=== PATIENT | female | born 1990 | race Hispanic/Latino ===

== ENCOUNTER 2019-09-13 17:24 | Emergency (ER) | payer BC, OTHER ==
--- OUTSIDE RECORDS SUMMARY | 2019-09-13 17:27 | XMS REPORT ---
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 Problem Mixed hyperlipidemia E78.2 Active Problem Anxiety, generalized F41.1 Active Problem Vitamin D deficiency disease E55.9 Active Problem Adult BMI 38.0-38.9 kg/sq m Z68.38 Active Problem Tobacco use disorder F17.200 Active Problem Current moderate episode of major F32.1 Active depressive disorder without prior episode Assessment Absolute glaucoma, 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 Assessment Adult BMI 38.0-38.9 kg/sq m Z68.38 Active Assessment Nonintractable headache, R51 Active unspecified chronicity pattern, unspecified headache type Assessment Vitamin B12 deficiency E53.8 Active Assessment Mixed hyperlipidemia E78.2 Active Assessment Fatigue, unspecified type R53.83 Active Assessment Tobacco use disorder F17.200 Active Assessment Vitamin D deficiency disease E55.9 Active Medications Medication Code Code Instructions Start End Status Dosage System Date Date Zoloft [facility] 10317321211 100 MG Orally Active 1 tablet Once a day Vitamin D3 [facility] 60255272642 57856 UNIT May 21Aug 19, Active 1 capsule Orally Once a 2019 2020 week x 12 weeks Wellbutrin XL ND 51235904817 150 MG Orally May 21, Active 1 tablet Once a day 2019 in the morning Results No Known Results Summary Purpose eClinicalWorks Submission
--- OUTSIDE RECORDS SUMMARY | 2019-09-13 17:27 | XMS REPORT ---
:1990 Author Organization eClinicalWorks Care Team Providers Name Role Phone Jony Mcdonnellh Provider Role Unavailable Allergies, Adverse Reactions, Alerts Substance Reaction Event Type Hydrocodone-Acetaminophen Info Not Available Drug Allergy Problems Problem Type Condition Code Onset Dates Condition Status Assessment Nonintractable headache, R51 Active unspecified chronicity pattern, unspecified headache type Assessment Anxiety, generalized F41.1 Active Assessment Fatigue, unspecified type R53.83 Active Problem Tobacco use disorder F17.200 Active Problem Current moderate episode of major F32.1 Active depressive disorder without prior episode Problem Mixed hyperlipidemia E78.2 Active Assessment Current moderate episode of major F32.1 Active depressive disorder without prior episode Problem Adult BMI 38.0-38.9 kg/sq m Z68.38 Active Problem Anxiety, generalized F41.1 Active Assessment Absolute glaucoma, 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
--- OUTSIDE RECORDS SUMMARY | 2019-09-13 17:27 | XMS REPORT | Encounter Summary ---
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 Gynecologic examination pap, LB + CT/NG + reflex HR HPV if ASC-U, ASC-H, LSIL, HSIL, JESSE HBsAg (hepatitis B surface Ag), serum HIV (1+2) Ab screen, serum RPR (rapid plasma reagin), serum Discussion Note Pap, GC/CT done. Schedule mammogram. Counseled regarding prevention of STD's and discussed contraceptive options. Advised avoidance of tobacco, alcohol, and drugs . Encouraged good nutrition, regular exercise, and ideal body weight. Patient educational handouts: No information available. Plan of Care Reminders Provider Appointments None recorded. Lab Pap, LB + Medical Diagnostic CT/NG + Reflex hr HPV 02/11/2019 Laboratories ([facility]) If ASC-U, ASC-H, LSIL, HSIL, JESSE HBsAg [facility] (Hepatitis B Surface 02/11/2019 [facility] (Lab) Ag), Serum HIV (1+2) [facility] Ab Screen, Serum 02/11/2019 [facility] (Lab) RPR (Rapid [facility] Plasma Reagin), Serum 02/11/2019 [facility] (Lab) Referral None recorded. Procedures None recorded. Surgeries None recorded. Imaging None recorded. Medications Name Start Date sertraline 100 mg tablet one po daily Medications Administered None recorded. Vitals Height Weight BMI Blood Pressure 5 ft 2 in 157.2 lbs 28.8 kg/m2 116/74 mm[Hg] Lab Results None recorded. Allergies Code Code System Name Reaction Severity Status Onset 5489 RxNorm Hydrocodone Hives Mild to Active Moderate Problems None recorded. Procedures Date Name Performed by 05/10/2015 Repair of Umbilical Hernia Information not available 05/10/2010 Bilateral Augmentation Mammoplasty Information not available Bilateral Tubal Ligation Information not available Vaccine List None recorded. Social History Tobacco Smoking Status Former Smoker Past Encounters 02/11/2019 Gynecologic Examination Ghada Jackson MD: [address] [place] [address], [address], [place] [address], Ph. [phone] History of Present Illness Note: 28 yo presenting for WWE, no complaints. Pt has never had an abnl pap. 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 Mood and Affect: active and alert, normal mood, normal affect Skin: Appearance: no rashes, no lesions Neck: Neck: supple, trachea midline, no masses, FROM. Thyroid: no enlargement, no nodules, non-tender Lungs: Respiratory Effort: no intercostal retractions, no accessory muscle usage. Auscultation: clear to auscultation, no wheezing, no rales/crackles, no rhonchi Cardiovascular: Auscultation: RRR, no murmur. Peripheral Vascular: no LLE edema, no RLE edema, no varicosities, no calf tenderness, no palpable cords, pedal pulses intact Abdomen: Auscultation/Inspection/Palpation: normal bowel sounds, soft, non-distended, no tenderness, no hepatomegaly, no splenomegaly, no masses, no CVA tenderness. Hernia: none palpated Breast: Inspection/Palpation: no skin changes, no abnormal secretions, nipple appearance normal, no tenderness, no distinct masses Female Genitalia: Vulva: no masses, no atrophy, no lesions. Vagina: no tenderness, no erythema, no abnormal vaginal discharge, no vesicle(s) or ulcers, no cystocele, no rectocele. Cervix: grossly normal, no discharge, no cervical motion tenderness. Uterus: normal size, normal shape, midline, no uterine prolapse, mobile, non-tender. Bladder/Urethra: normal meatus, no urethral discharge, no urethral mass, bladder non distended. Adnexa/Parametria: no parametrial tenderness, no parametrial mass, no adnexal tenderness, no ovarian mass
--- OUTSIDE RECORDS SUMMARY | 2019-09-13 17:27 | XMS REPORT ---
:1990 Author Organization eClinicalWorks Care Team Providers Name Role Phone Jony Mcdonnellh Provider Role Unavailable Allergies, Adverse Reactions, Alerts Substance Reaction Event Type Hydrocodone-Acetaminophen Info Not Available Drug Allergy Problems Problem Type Condition Code Onset Dates Condition Status Assessment Adult BMI 30.0-30.9 kg/sq m Z68.30 Active Assessment Current moderate episode of major F32.1 Active depressive disorder without prior episode Problem Vitamin D deficiency disease E55.9 Active Assessment Encounter for dietary counseling Z71.3 Active and surveillance Problem Mixed hyperlipidemia E78.2 Active Problem Adult BMI 30.0-30.9 kg/sq m Z68.30 Active Problem Current moderate episode of major F32.1 Active depressive disorder without prior episode Problem Adult BMI 38.0-38.9 kg/sq m Z68.38 Active Problem Anxiety, generalized F41.1 Active Problem Tobacco use disorder F17.200 Active Assessment Tobacco use disorder F17.200 Active Assessment Nonintractable headache, R51 Active unspecified chronicity pattern, unspecified headache type Assessment Absolute glaucoma, 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 70008994173 875-125 MG Jun 20, Jun 30, Active 1 tablet Clavulanate Orally every 12 2018 2019 hrs Zoloft ND 61181006976 100 MG Orally Inactive 1 tablet Once a day Vitamin D3 [facility] 30223473695 36973 UNIT Active 1 capsule Orally Once a week x 12 weeks Phentermine HCl ND 74527679668 15 MG Orally Jun 20, Jul 20, Active Take 1 Once a day 2018 2020 Capsule QAm x 2 weeks then 2 Caps qAM x 1 week Wellbutrin XL [facility] 41568717968 300 MG Orally Active 1 tablet Once a day in the morning Results No Known Results Summary Purpose eClinicalWorks Submission
--- OUTSIDE RECORDS SUMMARY | 2019-09-13 17:27 | XMS REPORT ---
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 Active psychoactive substance Problem Vitamin D deficiency disease E55.9 Active Problem Mixed hyperlipidemia E78.2 Active Problem Adult BMI 30.0-30.9 kg/sq m Z68.30 Active Problem Current moderate episode of major F32.1 Active depressive disorder without prior episode Problem Adult BMI 38.0-38.9 kg/sq m Z68.38 Active Problem Anxiety, generalized F41.1 Active Problem Tobacco use disorder F17.200 Active Medications Medication Code Code Instructions Start End Status Dosage System Date Date Wellbutrin XL [facility] 83441398543 300 MG Orally Active 1 tablet Once a day in the morning Results No Known Results Summary Purpose eClinicalWorks Submission
--- OUTSIDE RECORDS SUMMARY | 2019-09-13 17:27 | XMS REPORT ---
:1990 Author Organization eClinicalWorks Care Team Providers Name Role Phone Junior Mcdonnell Provider Role Unavailable Allergies, Adverse Reactions, Alerts Substance Reaction Event Type Hydrocodone-Acetaminophen Info Not Available Drug Allergy Problems Problem Type Condition Code Onset Dates Condition Status Assessment Acute non-recurrent maxillary J01.00 Active sinusitis Assessment Upper respiratory tract infection, J06.9 Active unspecified type Assessment Influenza-like symptoms R68.89 Active Problem Vitamin D deficiency disease E55.9 [...] Start End Status Dosage System Date Date Vitamin D3 [facility] 14215810057 61387 UNIT Active 1 capsule Orally Once a week x 12 weeks Oseltamivir [facility] 58843433522 75 MG Orally Jul 02, Active 1 capsule Phosphate Twice a day 2018 Wellbutrin XL ND 29736616510 300 MG Orally Active 1 tablet Once a day in the morning Phentermine HCl ND 69540368524 15 MG Orally Jun 20, Jul 20, Active Take 1 Once a day 2018 2019 Capsule QAm x 2 weeks then 2 Caps qAM x 1 week Azithromycin ND 83293213906 250 MG Orally Jul 02, Jul 07, Active 2 tablets Once a day 2018 2018 on the first day, then 1 tablet daily for 4 days Results Name Result Date Reference Range Unit Abnormality Flag STREP A RAPID ----Result NEG [id number] FLU TEST A/B ----B NEG [id number] ----A NEG [id number] Summary Purpose eClinicalWorks Submission
--- OUTSIDE RECORDS SUMMARY | 2019-09-13 17:27 | XMS REPORT ---
[...] Status Dosage System Date Date Wellbutrin XL [facility] 65053404111 300 MG Orally Active 1 tablet Once a day in the morning Results No Known Results Summary Purpose eClinicalWorks Submission
--- OUTSIDE RECORDS SUMMARY | 2019-09-13 17:27 | XMS REPORT ---
[...] Problem Tobacco use disorder F17.200 Active Assessment Mixed hyperlipidemia E78.2 Active Assessment Tobacco use disorder F17.200 Active Assessment Encounter for dietary counseling Z71.3 Active and surveillance Assessment Absolute glaucoma, 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 Assessment Fatigue, unspecified type R53.83 Active Assessment Vitamin D deficiency disease E55.9 Active Assessment Nonintractable headache, R51 Active unspecified chronicity pattern, unspecified headache type Assessment Anxiety, generalized F41.1 Active Assessment Vitamin B12 deficiency E53.8 Active Assessment Sexual dysfunction due to F19.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 51874449973 100 MG Orally Active 1 tablet Once a day Phentermine HCl ND 45787928302 30 MG Orally Active 1 capsule Once a day Vitamin D3 [facility] 80584730901 41013 UNIT Active 1 capsule Orally Once a week x 12 weeks Wellbutrin XL [facility] 35204683832 300 MG Orally Active 1 tablet Once a day in the morning Results No Known Results Summary Purpose eClinicalWorks Submission
[2019-09-13] MEDS ORDERED: ONDANSETRON 4 MG/2 ML VIAL ONE (18:12)
[2019-09-13] MEDS ORDERED: NA CHLORIDE 0.9% 1,000 ML ONE (18:12)
[2019-09-13] MEDS ORDERED: FAMOTIDINE 20 MG/2 ML VIAL IV ONE (18:12)
[2019-09-13] MEDS ORDERED: MORPHINE 2 MG/ML SYR ONE (18:31)
[2019-09-13 18:41] LABS: Absolute Lymphocytes (CBC) 0.7 K/uL (0.7-4.9); Basophils % 0.3 % (0-1.3); Hematocrit 41.9 % (36.0-45.0); Lymphocytes % 7.3 % (15.3-44.8); MPV 9.2 fL (7.6-11.3); RBC Red Blood Cell Count 4.83 M/uL (3.86-4.86)
[2019-09-13 18:46] LABS: Bilirubin Direct 0.1 mg/dL (0-0.2); Bilirubin Total 0.5 mg/dL (0.2-1.0); Potassium 3.8 mmol/L (3.5-5.1); Protein, Total 7.9 g/dL (6.4-8.2)
[2019-09-13 19:04] LABS: Urine Blood TRACE (NEG); Urine Glucose NEGATIVE (NEG); Urine Protein 1+ (NEG); Urine Specific Gravity 1.025 (1.005-1.030); Urine pH 8.5 (5.0-7.0)
--- NOTE | 2019-09-13 20:25 | ER ---
Nurse's Notes [facility] Name: Renae Joseph Age: 29 yrs Sex: Female : 1990 Arrival Date: 09/13/2019 Time: 17:29 Bed 26 Private MD: Diagnosis: Abdominal and pelvic pain;Nausea and vomiting;Constipation Presentation: 09/12 17:45 Chief complaint: Patient states: "I've been constipated for about a week and my grandma aa5 gave me a colon cleanse and my stomach is hurting and I am throwing up and I did have 2 bowel movement but not as much as I thought". Coronavirus screen: The patient has NOT traveled to a country currently being monitored by the CDC within the last 14 days. Ebola Screen: Patient negative for fever greater than or equal to 101.5 degrees Fahrenheit, and additional compatible Ebola Virus Disease symptoms. Initial Sepsis Screen: Does the patient meet any 2 criteria? No. Patient's initial sepsis screen is negative. Does the patient have a suspected source of infection? No. Patient's initial sepsis screen is negative. Risk Assessment: Do you want to hurt yourself or someone else? Patient reports no desire to harm self or others. 17:45 Method Of Arrival: Ambulatory aa5 17:45 Acuity: ЕКАТЕРИНА 3 aa5 20:35 Onset of symptoms was September 06, 2019 at 20:00. vc Triage Assessment: 20:32 General: Appears in no apparent distress. Behavior is calm, cooperative, appropriate vc for age. Pain: Complains of pain in epigastric area. GI: Reports upper abdominal pain, nausea, vomiting. 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 - Social history:: Smoking status: Patient denies any tobacco usage or history of. Screenin:31 Abuse screen: Denies threats or abuse. Nutritional screening: No deficits noted. vc Tuberculosis screening: No symptoms or risk factors identified. 20:34 Fall Risk None identified. vc Assessment: 17:48 General: Appears in no apparent distress. uncomfortable, Behavior is calm, cooperative. ls4 Pain: Complains of pain in epigastric area Pain currently is 8 out of 10 on a pain scale. Neuro: No deficits noted. Cardiovascular: No deficits noted. Respiratory: No deficits noted. GI: Abdomen is round non-distended, Bowel sounds present X 4 quads. Abd is soft Abdomen is tender to palpation in epigastric area. : No signs and/or symptoms were reported regarding the genitourinary system. Derm: No deficits noted. 19:50 Reassessment: Patient appears in no apparent distress at this time. No changes from ls4 previously documented assessment. Patient and/or family updated on plan of care and expected duration. Pain level reassessed. Patient is alert, oriented x 3, equal unlabored respirations, skin warm/dry/pink. Vital Signs: 17:47 BP 124 / 89; Pulse 112; Resp 18 S; Temp 98.5(TE); Pulse Ox 98% on R/A; Weight 70.31 kg aa5 (R); Height 5 ft. 2 in. (157.48 cm) (R); Pain 7/10; 18:38 BP 123 / 73; Pulse 104; Resp 18; Temp 99.4(O); Pulse Ox 99% on R/A; mh5 17:47 Body Mass Index 28.35 (70.31 kg, 157.48 cm) aa5 ED Course: 17:29 Patient arrived in ED. ag5 17:45 Arm band placed on. aa5 17:46 Triage completed. aa5 17:48 Shiva Tijerina FNP-C [facility]. la1 17:48 Ceferino De La Cruz MD is Attending Physician. la1 17:59 Avril Miles, DIANA is Primary Nurse. ls4 18:39 Patient has correct armband on for positive identification. Placed in gown. Bed in low mh5 position. Call light in reach. Adult w/ patient. Warm blanket given. Pulse ox on. NIBP on. 20:32 Urine --Ancillary (enter results) Sent. ls4 20:32 Urine Dipstick--Ancillary (enter results) Sent. ls4 20:33 No provider procedures requiring assistance completed. IV discontinued, intact, vc bleeding controlled, No redness/swelling at site. Pressure dressing applied. Administered Medications: 18:26 Drug: NS 0.9% 1000 ml Route: IV; Rate: 1 bolus; Site: right antecubital; ls4 19:30 Follow up: IV Status: Completed infusion; IV Intake: 1000ml ls4 18:26 Drug: Zofran (Ondansetron) 4 mg Route: IVP; Site: right antecubital; ls4 18:30 Drug: morphine 2 mg Route: IVP; Site: right antecubital; ls4 18:36 Drug: Pepcid 20 mg Route: IVP; Site: left antecubital; ls4 Intake: 19:30 IV: 1000ml; Total: 1000ml. ls4 Outcome: 20:24 Discharge ordered by MD. la1 20:34 Discharged to home ambulatory, with significant other. vc 20:34 Condition: improved 20:34 Discharge instructions given to patient, significant other, Instructed on discharge instructions, follow up and referral plans. medication usage, Demonstrated understanding of instructions, follow-up care, medications, Prescriptions given X 2. 20:36 Patient left the ED. vc Signatures: Dede Juarez, RN RN aa5 Shiva Tijerina, POMOLOGY TEACHER-C POMOLOGY TEACHER-Cla1 Heather Jacobsen 5 Avril Miles RN RN ls4 Regis Maravilla 5 Marina Juárez RN RN vc Corrections: (The following items were deleted from the chart) 20:47 20:34 GI: Abdomen is flat, vc ls4
--- NOTE | 2019-09-13 20:25 | EDPHYS ---
Physician Documentation [facility] Name: Renae Joseph Age: 29 yrs Sex: Female : 1990 Arrival Date: 09/13/2019 Time: 17:29 Bed 26 Private MD: ED Physician Ceferino De La Cruz HPI: 09/12 18:07 This 29 yrs old Female presents to ER via Ambulatory with complaints of la1 Vomiting, Abdominal Pain. 18:07 The patient presents to the emergency department with nausea, vomiting, abdominal pain, la1 of the epigastric area. Onset: The symptoms/episode began/occurred today. Possible causes: unknown. The symptoms are aggravated by vomiting The symptoms are alleviated by nothing. Associated signs and symptoms: Pertinent positives: constipation, Pertinent negatives: dysuria, fever, GI bleeding, hematuria. Severity of symptoms: At their worst the symptoms were moderate. The patient has not experienced similar symptoms in the past. 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 - Social history:: Smoking status: Patient denies any tobacco usage or history of. ROS: 18:08 Constitutional: Negative for fever, chills, and weight loss, Eyes: Negative for injury, la1 pain, redness, and discharge, ENT: Negative for injury, pain, and discharge, Neck: Negative for injury, pain, and swelling, Cardiovascular: Negative for chest pain, palpitations, and edema, Respiratory: Negative for shortness of breath, cough, wheezing, and pleuritic chest pain. 18:08 Back: Negative for injury and pain, : Negative for injury, bleeding, discharge, and swelling, MS/Extremity: Negative for injury and deformity, Neuro: Negative for headache, weakness, numbness, tingling, and seizure. 18:08 Abdomen/GI: Positive for abdominal pain, nausea, vomiting, constipation. Exam: 18:09 Constitutional: This is a well developed, well nourished patient who is awake, alert, la1 and in no acute distress. Head/Face: Normocephalic, atraumatic. Eyes: Pupils equal round and reactive to light, extra-ocular motions intact. Lids and lashes normal. Conjunctiva and sclera are non-icteric and not injected. Cornea within normal limits. Periorbital areas with no swelling, redness, or edema. ENT: Mucous membranes moist. Neck: Trachea midline, Chest/axilla: Normal chest wall appearance and motion. Nontender with no deformity. No lesions are appreciated. Cardiovascular: Regular rate and rhythm with a normal S1 and S2. Respiratory: Lungs have equal breath sounds bilaterally, clear to auscultation 18:09 Back: No spinal tenderness. No costovertebral tenderness. Full range of motion. 18:09 Abdomen/GI: Inspection: abdomen appears normal, Bowel sounds: normal, in all quadrants, Palpation: soft, in all quadrants, mild abdominal tenderness, in all quadrants, mass, is not appreciated, rebound tenderness, is not appreciated, Indicators: McBurney's point is not tender, Helms's sign is negative, Rovsing's sign is negative, Obturator sign is negative, Psoas sign is negative. Vital Signs: 17:47 BP 124 / 89; Pulse 112; Resp 18 S; Temp 98.5(TE); Pulse Ox 98% on R/A; Weight 70.31 kg aa5 (R); Height 5 ft. 2 in. (157.48 cm) (R); Pain 7/10; 18:38 BP 123 / 73; Pulse 104; Resp 18; Temp 99.4(O); Pulse Ox 99% on R/A; mh5 17:47 Body Mass Index 28.35 (70.31 kg, 157.48 cm) aa5 MDM: 17:48 Patient medically screened. la1 19:32 Data reviewed: vital signs, nurses notes, lab test result(s), and as a result, I will la1 discharge patient. Data interpreted:. 20:23 Special discussion: Based on the patient's Hx, exam, and Dx evaluation, there is no la1 indication for emergent surgery or inpatient Tx. It is understood by the patient/guardian that if the Sx's persist or worsen they need to return immediately for re-evaluation. 20:25 ED course: pt tolerating PO fluids, feeling much better. la09/12 17:57 Order name: Basic Metabolic Panel la09/12 17:57 Order name: CBC with Diff la1 09/12 17:57 Order name: Creatinine for Radiology la1 09/12 17:57 Order name: Hepatic Function la09/12 17:57 Order name: Lipase la1 09/12 18:45 Order name: Creatinine (Radiology Only); Complete Time: 19:12 EDMS 09/12 18:47 Order name: Basic Metabolic Panel; Complete Time: 19:12 EDMS 09/12 18:47 Order name: Liver (Hepatic) Function; Complete Time: 19:12 EDMS 09/12 18:47 Order name: Lipase; Complete Time: 19:12 EDMS 09/12 18:52 Order name: Urine Dipstick--Ancillary (enter results) eb 09/12 18:52 Order name: Urine --Ancillary (enter results) eb 09/12 18:55 Order name: CBC with Automated Diff EDMS 09/12 19:05 Order name: Urine --Ancillary; Complete Time: 19:12 EDMS 09/12 19:05 Order name: Urine Dipstick-Ancillary; Complete Time: 19:12 EDMS 09/12 17:57 Order name: IV Saline Lock; Complete Time: 20:39 la1 09/12 17:57 Order name: Labs collected and sent; Complete Time: 20:39 la1 09/12 17:57 Order name: Urine Dipstick-Ancillary (obtain specimen); Complete Time: 20:36 nc1 09/12 17:57 Order name: Urine Test (obtain specimen); Complete Time: 20:36 nc09/12 19:36 Order name: PO challenge; Complete Time: 20:10 la09/12 20:29 Order name: Manual Differential EDMS Administered Medications: 18:26 Drug: NS 0.9% 1000 ml Route: IV; Rate: 1 bolus; Site: right antecubital; ls4 19:30 Follow up: IV Status: Completed infusion; IV Intake: 1000ml ls4 18:26 Drug: Zofran (Ondansetron) 4 mg Route: IVP; Site: right antecubital; ls4 18:30 Drug: morphine 2 mg Route: IVP; Site: right antecubital; ls4 18:36 Drug: Pepcid 20 mg Route: IVP; Site: left antecubital; ls4 Disposition: 09/13/19 20:24 Discharged to Home. Impression: Abdominal and pelvic pain, Nausea and vomiting, Constipation. - Condition is Stable. - Discharge Instructions: Nausea and Vomiting, Adult, Abdominal Pain, Adult, [id number], Rehydration, Adult. - Prescriptions for Bentyl 20 mg Oral Tablet - take 1 tablet by ORAL route every 6 hours As needed; 20 tablet. Zofran 4 mg Oral Tablet - take 1 tablet by ORAL route every 12 hours As needed; 6 tablet. - Medication Reconciliation Form, Thank You Letter form. - Follow up: Private Physician; When: 2 - 3 days; Reason: Recheck today's complaints, Re-evaluation by your physician. - Problem is new. - Symptoms have improved. Addendum: 09/16/2019 07:25 Co-signature as Attending Physician, Ceferino De La Cruz MD I agree with the assessment and c romo plan of care. Signatures: Dispatcher [employer] EDKY Ceferino De La Cruz MD MD cha Calderon, Audri, RN RN aa5 Shiva Tijerina, TRAINING DIRECTOR-C TRAINING DIRECTOR-Cla1 Avril Miles, RN RN ls4 Marina Juárez RN RN vc Corrections: (The following items were deleted from the chart) 09/12 20:36 20:24 09/13/2019 20:24 Discharged to Home. Impression: Abdominal and pelvic pain; vc Nausea and vomiting; Constipation. Condition is Stable. Forms are Medication Reconciliation Form, Thank You Letter, Antibiotic Education, Prescription Opioid Use. Follow up: Private Physician; When: 2 - 3 days; Reason: Recheck today's complaints, Re-evaluation by your physician. Problem is new. Symptoms have improved. la1
[2019-09-13 20:29] LABS: Blood Morphology Comment NOT SEEN (NOT SEEN); Platelet Estimate ADEQ
[2019-09-13 20:43] VITALS: BP 123/73; TEMP 99.4; O2SAT 99
== END 2019-09-13 20:36 | disposition home or self-care (01) ==
LOC: ER 17:24
DX: R10.9 Unspecified abdominal pain (principal); R10.2 Pelvic and perineal pain; K59.00 Constipation, unspecified; Z88.6 Allergy status to analgesic agent; Z91.09 Other allergy status, other than to drugs and biological substances; F41.8 Other specified anxiety disorders
CPT/HCPCS: 96361; 85025; 80048; 36415; 81025; 80076; 81003; 83690; 96375; 96374; 99284; J2270; J7030; J2405

== ENCOUNTER 2024-10-16 10:18 | Emergency (ER) | payer OTHER, SELFPAY ==
--- OUTSIDE RECORDS SUMMARY | 2024-10-16 10:23 | XMS REPORT | Continuity of Care Document ---
Author Name Unknown Address [address] [facility] [address] [place] [address] [facility] Address [address] [facility] [address] [place] [address] Care Team Providers Care Hyperbaric Technician Name Role Phone Sathya Junior Deven Attending Clinician Unavailable Hernesto Dodge DO Attending Clinician [phone] Chaya Attending Clinician Unavailable Chaya Admitting Clinician Unavailable Payers Payer Name Policy Type Policy Number Effective Date Expirati on Date Source [facility] 6 [id number] 2023 00:00:00 [facility] BELTRAN CRUZ FROM OCCIDENTAL HEALTH PLAN (EPO) [id number] Problems Condition Name Condition Details Condition Category Status Onset Date Resolution Date Last Treatment Date Treating Clinician Comments Source [id number] PCOS (polycysti c ovarian syndrome) Problem [facility] [id number] Memory change Problem [facility] [id number] Irregular menstrual bleeding Problem [facility] [id number] Current moderate episode of major depressive disorder without prior episode Problem [facility] [id number] Body mass index [BMI] 32.0-32.9, adult Problem [facility] [id number] Tobacco use disorder Problem [facility] [id number] Excessive bleeding in premenopau naresh period Problem [facility] [id number] Anxiety, generalize d Problem [facility] Blind hypertensi ve eye Absolute glaucoma, unspecifie d laterality Problem [facility] [id number] Other obesity due to excess calories Problem [facility] [id number] Mixed hyperlipid emia Problem [facility] [id number] Vitamin D deficiency disease Problem [facility] [id number] Panic attack Problem [facility] Allergies, Adverse Reactions, Alerts Allergy Name Allergy Type Status Severity Reaction(s) Onset Date Inactive Date Treating Clinician Comments Source Hydrocod one Propensi ty to adverse reaction s Active Unknown - See comments 11-24 00:00: 00 [facility] Latex Propensi ty to adverse reaction s Active Unknown - See comments 11-24 00:00: 00 [facility] HYDROCOD ONE DRUG INGREDI Active Unknown-Cmnt 11-24 00:00: 00 [facility] LATEX DRUG INGREDI Active Unknown-Cmnt 11-24 00:00: 00 [facility] acetamin ophen / hydrocod one acetamin ophen / hydrocod one Active Unknown [facility] NO KNOWN ALLERGIE S Drug Class Active [facility] Hydrocod one Allergy to substanc e Active Mild to moderate Hives [facility] Social History Social Habit Start Date Stop Date Quantity Comments Source Exposure to SARS-CoV-2 (event) Not sure [facility] History of Tobacco Use Current some day smoker [facility] Sex Assigned At [facility] Smoking Status Start Date Stop Date Source Unknown if ever smoked [facility] Current some day smoker 2024-07-12 00:00:00 [facility] Former Smoker 2023-08-09 00:00:00 2023-08-09 00:00:00 [facility] Current Smoker 2023-07-07 00:00:00 [facility] Medications Ordered Medication Name Filled Medication Name Start Date Stop Date Current Medication? Ordering Clinician Indication Dosage Frequency Signature (SIG) Comments Components Source Wegovy 1 MG/0.5ML Wegovy 1 MG/0.5ML 08-07 00:00: 00 No Wegovy 1 MG/0.5ML metFORMIN HCl 500 MG metFORMIN HCl 500 MG 08-09 00:00: 00 No 1{table t_with_ a_meal} QD metFORMIN HCl 500 MG Progesteron e 200 MG Progesteron e 200 MG 04-06 00:00: 00 No 1{capsu le_at_b edtime} QD Progestero ne 200 MG Imitrex 25 MG Imitrex 25 MG 16 00:00: 00 No BID Imitrex 25 MG Trintellix 10 MG Trintellix 10 MG 11-08 00:00: 00 No 1{table t} QD Trintellix 10 MG ondansetron (ZOFRAN-ODT ) disintegrat ing tablet 4 mg 11-24 14:15: 00 11-24 14:15 :00 No 4mg 4 mg, Oral, ONCE, 1 dose, 11/24/20 at 0915, Routine [facility] hydrOXYzine (ATARAX) tablet 25 mg 11-24 13:45: 00 11-24 12:33 :00 No 25mg 25 mg, Oral, ONCE, 1 dose, 11/24/20 at 0845, [facility] LORazepam (ATIVAN) tablet 1 mg 11-24 13:45: 00 11-24 12:33 :00 No 1mg 1 mg, Oral, ONCE, 1 dose, 11/24/20 at 0845, [facility] hydrOXYzine 25 mg capsule 11-24 00:00: 00 Yes [id number] 25mg Take 1 capsule by mouth 3 (three) times daily as needed for Anxiety. [facility] Vitamin B12 (Cyanocobal nichols) Vitamin B12 (Cyanocobal nichols) 2018-07 00:00: 00 No 1000ug [facility] Lysine Lysine No 1{capsu le} Lysine Spironolact one 50 MG Spironolact one 50 MG No 1{table t} QD Spironolac tone 50 MG hydrOXYzine Pamoate 25 MG hydrOXYzine Pamoate 25 MG No 1{capsu le_at_b edtime_ as_need ed} QD hydrOXYzin e Pamoate 25 MG Tretinoin 0.05 % Tretinoin 0.05 % No QD Tretinoin 0.05 % Sertraline HCl 50 MG Sertraline HCl 50 MG No 1{table t} QD Sertraline HCl 50 MG sertraline 100 mg tablet one po daily sertraline 100 mg tablet one po daily No sertraline 100 mg tablet one po daily [facility] Immunizations Ordered Immunization Name Filled Immunization Name Date Status Comments Source Vitamin B12 (Cyanocobalamin) Vitamin B12 (Cyanocobalamin) 2019-05-21 14:20:00 Completed [facility] 2019-03-12 14:15:00 [facility] 2019-03-12 14:15:00 [facility] 2019-03-12 14:15:00 [facility]pleted [facility] 2019-03-12 14:15:00 Completed [facility] 2019-03-12 14:15:00 Completed [facility] 2019-03-12 14:15:00 Completed [facility] 2019-03-12 14:15:00 [facility] 2019-03-12 00:00:00 Completed [facility] A[facility] Unknown Completed [facility] Afluria Afluria Unknown Completed [facility] Afluria Afluria Unknown Completed [facility] Afluria Afluria Unknown Completed [facility] Afluria Afluria Unknown Completed [facility] Afluria Afluria Unknown Completed [facility] Afluria Afluria Unknown Completed [facility] Afluria Afluria Unknown Completed [facility] Afluria Afluria Unknown Completed [facility] Afluria Afluria Unknown Completed [facility] Afluria Afluria Unknown Completed [facility] Afluria Afluria Unknown Completed [facility] Afluria Afluria Unknown Completed [facility] Vital Signs Vital Name Observation Time Observation Value Comments S ource height 2024-07-12 10:15:00 62 [in_i] Commo n [facility] weight 2024-07-12 10:15:00 161.6 [lb_av] [facility] 2024-07-12 10:15:00 97.3 [degF] Com mon [facility] bmi 2024-07-12 10:15:00 29.55 kg/m2 Comm on [facility] oximetry 2024-07-12 10:15:00 98 [facility] 2024-07-12 10:15:00 18 /min [facility] blood pressure systolic 2024-07-12 10:15:00 126 mm[Hg] Common [facility] blood pressure diastolic 2024-07-12 10:15:00 76 mm[Hg] Common [facility] height 2024-05-03 10:10:00 62 [in_i] Commo n [facility] weight 2024-05-03 10:10:00 160 [lb_av] Comm on [facility] bmi 2024-05-03 10:10:00 29.26 kg/m2 Comm on [facility] height 2024-04-09 10:30:00 62 [in_i] Commo n [facility] weight 2024-04-09 10:30:00 160 [lb_av] Comm on [facility] bmi 2024-04-09 10:30:00 29.26 kg/m2 Comm on [facility] height 2024-03-08 13:00:00 62 [in_i] Commo n [facility] weight 2024-03-08 13:00:00 164 [lb_av] Comm on [facility] bmi 2024-03-08 13:00:00 29.99 kg/m2 Comm on [facility] height 2024-01-17 08:20:00 62 [in_i] Commo n [facility] weight 2024-01-17 08:20:00 163 [lb_av] Comm on [facility] bmi 2024-01-17 08:20:00 29.81 kg/m2 Comm on [facility] blood pressure systolic 2024-01-17 08:20:00 130 mm[Hg] Common [facility] blood pressure diastolic 2024-01-17 08:20:00 70 mm[Hg] Common [facility] height 2024-01-08 13:40:00 62 [in_i] Commo n [facility] weight 2024-01-08 13:40:00 172 [lb_av] Comm on [facility] bmi 2024-01-08 13:40:00 31.46 kg/m2 Comm on [facility] blood pressure systolic 2024-01-08 13:40:00 128 mm[Hg] Common [facility] blood pressure diastolic 2024-01-08 13:40:00 76 mm[Hg] Common [facility] height 2023-12-29 10:50:00 62 [in_i] Commo n [facility] weight 2023-12-29 10:50:00 174.4 [lb_av] Co mmon [facility] temperature 2023-12-29 10:50:00 97.6 [degF] Com mon [facility] bmi 2023-12-29 10:50:00 31.89 kg/m2 Comm on [facility] oximetry 2023-12-29 10:50:00 98 % Commo n [facility] blood pressure systolic 2023-12-29 10:50:00 122 mm[Hg] [facility] blood pressure diastolic 2023-12-29 10:50:00 76 mm[Hg] [facility] height 2023-08-09 10:30:00 62 [in_i] Commo n [facility] weight 2023-08-09 10:30:00 178 [lb_av] Comm on [facility] bmi 2023-08-09 10:30:00 32.55 kg/m2 Comm on [facility] height 2023-07-13 08:00:00 62 [in_i] Commo n [facility] weight 2023-07-13 08:00:00 177.4 [lb_av] Co mmon [facility] temperature 2023-07-13 08:00:00 98.7 [degF] Com [facility] bmi 2023-07-13 08:00:00 32.44 kg/m2 Comm on [facility] oximetry 2023-07-13 08:00:00 99 % Commo n [facility] blood pressure systolic 2023-07-13 08:00:00 110 mm[Hg] Common [facility] blood pressure diastolic 2023-07-13 08:00:00 70 mm[Hg] Common [facility] height 2023-05-30 08:20:00 62 [in_i] Commo n [facility] weight 2023-05-30 08:20:00 168 [lb_av] Comm on [facility] bmi 2023-05-30 08:20:00 30.72 kg/m2 Comm on [facility] height 2023-04-06 11:20:00 62 [in_i] Commo n [facility] weight 2023-04-06 11:20:00 168 [lb_av] Comm on [facility] bmi 2023-04-06 11:20:00 30.72 kg/m2 Comm on [facility] height 2023-02-22 14:40:00 62 [in_i] Commo n [facility] weight 2023-02-22 14:40:00 168 [lb_av] Comm on [facility] bmi 2023-02-22 14:40:00 30.72 kg/m2 Comm on [facility] height 2023-01-16 13:10:00 62 [in_i] Commo n [facility] weight 2023-01-16 13:10:00 168 [lb_av] Comm on [facility] temperature 2023-01-16 13:10:00 98 [degF] Comm on [facility] bmi 2023-01-16 13:10:00 30.72 kg/m2 Comm on [facility] height 2023-01-03 10:00:00 62 [in_i] Commo n [facility] weight 2023-01-03 10:00:00 168.2 [lb_av] Co mmon [facility] temperature 2023-01-03 10:00:00 97.6 [degF] Com mon [facility] bmi 2023-01-03 10:00:00 30.76 kg/m2 Comm on [facility] oximetry 2023-01-03 10:00:00 97 % Commo n [facility] respiratory rate 2023-01-03 10:00:00 17 /min Common [facility] blood pressure systolic 2023-01-03 10:00:00 123 mm[Hg] Common [facility] blood pressure diastolic 2023-01-03 10:00:00 64 mm[Hg] Common [facility] height 2022-08-17 13:00:00 62 [in_i] Commo n [facility] weight 2022-08-17 13:00:00 155 [lb_av] Comm on [facility] temperature 2022-08-17 13:00:00 97.4 [degF] Com mon [facility] bmi 2022-08-17 13:00:00 28.35 kg/m2 Comm on [facility] blood pressure systolic 2022-08-17 13:00:00 125 mm[Hg] Common [facility] blood pressure diastolic 2022-08-17 13:00:00 76 mm[Hg] Common [facility] height 2022-05-10 09:40:00 62 [in_i] Commo n [facility] weight 2022-05-10 09:40:00 156 [lb_av] Comm on [facility] temperature 2022-05-10 09:40:00 98 [degF] Comm on [facility] bmi 2022-05-10 09:40:00 28.53 kg/m2 Comm on [facility] height 2022-02-08 13:50:00 62 [in_i] Commo n [facility] weight 2022-02-08 13:50:00 155 [lb_av] Comm on [facility] temperature 2022-02-08 13:50:00 97 [degF] Comm on [facility] bmi 2022-02-08 13:50:00 28.35 kg/m2 Comm on [facility] blood pressure systolic 2022-02-08 13:50:00 122 mm[Hg] Common [facility] blood pressure diastolic 2022-02-08 13:50:00 70 mm[Hg] [facility] height 2021-11-08 08:10:00 62 [in_i] Commo n [facility] weight 2021-11-08 08:10:00 155 [lb_av] Comm on [facility] temperature 2021-11-08 08:10:00 98 [degF] Comm on [facility] bmi 2021-11-08 08:10:00 28.35 kg/m2 Comm on [facility] height 2021-08-04 11:30:00 62 [in_i] Commo n [facility] weight 2021-08-04 11:30:00 155 [lb_av] Comm on [facility] temperature 2021-08-04 11:30:00 97.5 [degF] Com mon [facility] bmi 2021-08-04 11:30:00 28.35 kg/m2 Comm on [facility] blood pressure systolic 2021-08-04 11:30:00 125 mm[Hg] [facility] blood pressure diastolic 2021-08-04 11:30:00 70 mm[Hg] Common [facility] height 2021-05-04 10:20:00 62 [in_i] Commo n [facility] weight 2021-05-04 10:20:00 155 [lb_av] Comm on [facility] temperature 2021-05-04 10:20:00 98 [degF] Comm on [facility] bmi 2021-05-04 10:20:00 28.35 kg/m2 Comm on [facility] Systolic blood pressure 2020-11-24 12:05:00 134 mm[Hg] [facility] Diastolic blood pressure 2020-11-24 12:05:00 88 mm[Hg] [facility] Heart rate 2020-11-24 12:05:00 82 /min [facility] Body temperature 2020-11-24 12:05:00 37.11 Gretchen [facility] Respiratory rate 2020-11-24 12:05:00 18 /min [facility] Body weight 2020-11-24 12:05:00 72.576 kg [facility] Oxygen saturation in Arterial blood by Pulse oximetry 2020-11-24 12:05:00 97 /min [place] [facility] BP Diastolic 2019-02-11 00:00:00 74 mm[Hg] [facility] Height 2019-02-11 00:00:00 62 [in_i] [facility] BMI (Body Mass Index) 2019-02-11 00:00:00 28.8 kg/m2 [facility] BP Systolic 2019-02-11 00:00:00 116 mm[Hg] [facility] n[facility] Body Weight 2019-02-11 00:00:00 157.2 [lb_av] [facility] Procedures Procedure Date / Time Performed Performing Clinician Source NOTICE OF PRIVACY PRACTICES 2020-11-24 11:45:26 Doctor Unassigned, Clint [facility] CONSENT/REFUSAL FOR DIAGNOSIS AND TREATMENT 2020-11-24 11:44:58 Doctor Unassigned, Clint [facility] Repair of Umbilical Hernia 2015-05-10 00:00:00 [facility] Bilateral Augmentation Mammoplasty 2010-05-10 00:00:00 [facility] Bilateral Tubal Ligation [facility] Plan of Care Planned Activity Planned Date Details Comments Source Diagnostic Test Pending 2019-02-11 00:00:00 pap, LB + CT/NG + reflex HR HPV if ASC-U, ASC-H, LSIL, HSIL, JESSE [code = pap, LB + CT/NG + reflex HR HPV if ASC-U, ASC-H, LSIL, HSIL, JESSE] [facility] Diagnostic Test Pending 2019-02-11 00:00:00 HBsAg (hepatitis B surface Ag), serum [code = HBsAg (hepatitis B surface Ag), serum] [facility] Diagnostic Test Pending 2019-02-11 00:00:00 HIV (1+2) Ab screen, serum [code = HIV (1+2) Ab screen, serum] [facility] Diagnostic Test Pending 2019-02-11 00:00:00 RPR (rapid plasma reagin), serum [code = RPR (rapid plasma reagin), serum] [facility] Encounters Start Date/Time End Date/Time Encounter Type Admission Type Attending [facility] Facility Care Department Encounter ID Source 2024-09-12 10:37:00 Outpatient Mcdonnell, Junior [facility] [id number] [facility] 2024-04-01 09:39:00 Outpatient Mcdonnell, Junior [facility] [id number] [facility] 2024-01-17 08:19:00 Outpatient Mcdonnell, Junior [facility] [id number] [facility] 2024-01-01 07:44:00 Outpatient Mcdonnell, Junior [facility] [id number] [facility] 2023-12-29 10:15:00 Outpatient Mcdonnell, Junior [facility] [id number] [facility] 2023-07-12 14:47:00 Outpatient Mcdonnell, Junior [facility] [id number] [facility] 2023-05-30 08:10:00 Outpatient Mcdonnell, Junior [facility] [id number] [facility] 2023-05-26 10:32:00 Outpatient Mcdonnell, Junior [facility] [id number] [facility] 2023-04-06 09:59:00 Outpatient Mcdonnell, Junior STLMLC [facility] [id number] [facility] 2023-02-22 14:44:00 Outpatient Mcdonnell, Junior [facility] [id number] [facility] 2023-02-20 10:47:00 Outpatient Mcdonnell, Junior [facility] [id number] [facility] 2023-01-16 09:08:00 Outpatient Mcdonnell, Junior [facility]LMLC [facility] [id number] [facility] 2022-08-16 10:19:01 Outpatient Mcdonnell, Junior [facility] [id number] [facility] 2022-08-15 09:31:01 Outpatient Mcdonnell, Junior [facility] [id number] [facility] 2022-06-16 10:11:51 Outpatient Mcdonnell, Junior [facility]LML[facility] [id number] [facility] 2022-05-06 09:59:01 Outpatient Mcdonnell, Junior [facility]LML[facility] [id number] [facility] 2022-02-10 14:06:00 Outpatient Mcdonnell, Junior [facility] [id number] [facility] 2021-11-11 11:32:01 Outpatient Mcdonnell, Junior [facility] [id number] [facility] 2021-11-05 14:41:00 Outpatient Mcdonnell, Junior [facility]LML[facility] [id number] [facility] 2021-09-08 10:23:00 Outpatient Mcdonnell, Junior [facility] [id number] [facility] 2021-08-04 13:47:00 Outpatient Mcdonnell, Junior [facility] [id number] [facility] 2021-08-04 13:30:23 Outpatient Mcdonnell, Junior [facility]LML[facility] [id number] [facility] 2021-08-04 11:39:32 Outpatient Mcdonnell, Junior [facility] [id number] [facility] 2021-08-04 11:17:51 Outpatient Mcdonnell, Junior [facility]LMLC [facility] [id number] [facility] 2021-08-04 11:16:08 Outpatient Mcdonnell, Junior [facility] [id number] [facility] 2021-08-04 11:14:03 Outpatient Junior Mcdonnell STYUKI [facility] [id number] [facility] 2021-08-04 11:08:16 Outpatient Junior Mcdonnell [facility] [id number] [facility] 2024-09-05 00:00:00 2024-09-05 00:00:00 (TEL) STL[facility]C [facility] [id number] [facility] 2024-08-07 00:00:00 2024-08-07 00:00:00 (TEL) STLMLC [facility] [id number] [facility] 2024-07-24 00:00:00 2024-07-24 00:00:00 (TEL) [facility]C [facility] [id number] [facility] 2024-07-22 00:00:00 2024-07-22 00:00:00 (WEB) STL[facility]C [facility] [id number] [facility] 2024-07-12 00:00:00 2024-07-12 00:00:00 (WELLNESS) Wellness Visit [facility] [id number] [facility] 2024-07-11 00:00:00 2024-07-11 00:00:00 (TEL) STLMLC ST[facility] [id number] [facility] 2024-06-19 00:00:00 2024-06-19 00:00:00 (WEB) STL[facility]C [facility] [id number] [facility] 2024-05-03 00:00:00 2024-05-03 00:00:00 (TEL) STLMLC STL[facility] [id number] [facility] 2024-05-03 00:00:00 2024-05-03 00:00:00 OFFICE VISIT ESTAB PT LEVEL 3 [facility]C ST[facility] [id number] [facility] 2024-04-09 00:00:00 2024-04-09 00:00:00 OFFICE VISIT ESTAB PT LEVEL 4 [facility] ST[facility] [id number] [facility] 2024-04-02 00:00:00 2024-04-02 00:00:00 (TEL) STLMLC STL[facility] [id number] [facility] 2024-03-25 00:00:00 2024-03-25 00:00:00 (WEB) STLMLC ST[facility] [id number] [facility] 2024-03-08 00:00:00 2024-03-08 00:00:00 OFFICE VISIT ESTAB PT LEVEL 3 [facility] ST[facility] [id number] [facility] 2024-03-07 00:00:00 2024-03-07 00:00:00 (TEL) STLMLC STL[facility] [id number] [facility] 2024-02-13 00:00:00 2024-02-13 00:00:00 (TEL) STLMLC ST[facility] [id number] [facility] 2024-01-17 00:00:00 2024-01-17 00:00:00 OFFICE VISIT ESTAB PT LEVEL 4 [facility] ST[facility] [id number] [facility] 2024-01-17 00:00:00 2024-01-17 00:00:00 (WEB) STLMLC STL[facility] [id number] [facility] 2024-01-16 00:00:00 2024-01-16 00:00:00 (WEB) STLMLC STL[facility] [id number] [facility] 2024-01-15 00:00:00 2024-01-15 00:00:00 (WEB) STLMLC ST[facility] [id number] [facility] 2024-01-08 00:00:00 2024-01-08 00:00:00 (TEL) STLMLC STL[facility]C [id number] [facility] 2024-01-08 00:00:00 2024-01-08 00:00:00 OFFICE VISIT ESTAB PT LEVEL 4 [facility]C STL[facility]C [id number] [facility] 2024-01-02 00:00:00 2024-01-02 00:00:00 (TEL) STLMLC STL[facility]C [id number] [facility] 2023-12-29 00:00:00 2023-12-29 00:00:00 OFFICE VISIT ESTAB PT LEVEL 4 [facility]C STL[facility] [id number] [facility] 2023-12-29 00:00:00 2023-12-29 00:00:00 (TEL) STLMLC STLMLC [id number] [facility] 2023-08-09 00:00:00 2023-08-09 00:00:00 OFFICE VISIT ESTAB PT LEVEL 4 [facility] STL[facility] [id number] [facility] [facility] 2023-07-13 00:00:00 2023-07-13 00:00:00 PREV VISIT EST AGE 18-39 STLMLC STLMLC [id number] [facility] 2023-05-30 00:00:00 2023-05-30 00:00:00 OFFICE VISIT ESTAB PT LEVEL 3 STLMLC STLMLC [id number] [facility] 2023-04-06 00:00:00 2023-04-06 00:00:00 OFFICE VISIT ESTAB PT LEVEL 3 STLMLC STLMLC [id number] [facility] 2023-04-05 00:00:00 2023-04-05 00:00:00 (TEL) STLMLC STLMLC [id number] [facility] 2023-02-22 00:00:00 2023-02-22 00:00:00 OFFICE VISIT ESTAB PT LEVEL 4 STLMLC STLMLC [id number] [facility] 2023-02-22 00:00:00 2023-02-22 00:00:00 (TEL) STLMLC STLMLC [id number] [facility] 2023-02-13 00:00:00 2023-02-13 00:00:00 (TEL) STLMLC STLMLC [id number] [facility] 2023-01-16 00:00:00 2023-01-16 00:00:00 OFFICE VISIT ESTAB PT LEVEL 3 STLMLC STLMLC [id number] [facility] 2023-01-03 00:00:00 2023-01-03 00:00:00 PREV VISIT EST AGE 17-39 STLMLC STLMLC [id number] [facility] 2022-11-23 00:00:00 2022-11-23 00:00:00 (TEL) STLMLC STLMLC [id number] [facility] 2022-08-19 00:00:00 2022-08-19 00:00:00 (TEL) STLMLC STLMLC [id number] [facility] 2022-08-17 00:00:00 2022-08-17 00:00:00 OFFICE VISIT ESTAB PT LEVEL 4 STLMLC STLMLC [id number] [facility] 2022-08-12 00:00:00 2022-08-12 00:00:00 (TEL) STLMLC STLMLC [id number] [facility] 2022-05-10 00:00:00 2022-05-10 00:00:00 OFFICE VISIT ESTAB PT LEVEL 4 STLMLC STLMLC [id number] [facility] 2022-03-30 00:00:00 2022-03-30 00:00:00 (TEL) STLMLC STLMLC [id number] [facility] 2022-02-08 00:00:00 2022-02-08 00:00:00 OFFICE VISIT ESTAB PT LEVEL 4 STLMLC STLMLC [id number] [facility] 2022-01-26 00:00:00 2022-01-26 00:00:00 (TEL) STLMLC STLMLC [id number] [facility] 2022-01-20 00:00:00 2022-01-20 00:00:00 (TEL) STLMLC STLMLC [id number] [facility] 2021-11-08 00:00:00 2021-11-08 00:00:00 OFFICE VISIT ESTAB PT LEVEL 4 STLMLC STLMLC [id number] [facility] 2021-11-05 00:00:00 2021-11-05 00:00:00 (TEL) STLMLC STLMLC [id number] [facility] 2021-08-04 00:00:00 2021-08-04 00:00:00 OFFICE VISIT ESTAB PT LEVEL 4 STLMLC STLMLC [id number] [facility] 2021-08-04 00:00:00 2021-08-04 00:00:00 (TEL) STLMLC STLMLC [id number] [facility] 2021-08-04 00:00:00 2021-08-04 00:00:00 (TEL) STLMLC STLMLC [id number] [facility] 2021-05-04 00:00:00 2021-05-04 00:00:00 OFFICE VISIT ESTAB PT LEVEL 4 STLMLC STLMLC [id number] [facility] 2021-03-05 00:00:00 2021-03-05 00:00:00 Outpatient STLMLC STLMLC [id number] [facility] 2021-03-05 00:00:00 2021-03-05 00:00:00 Outpatient STLMLC STLMLC [id number] [facility] 2021-03-04 00:00:00 2021-03-04 00:00:00 Outpatient STLMLC STLMLC [id number] [facility] 2021-03-03 00:00:00 2021-03-03 00:00:00 Outpatient STLMLC STLMLC [id number] [facility] 2021-02-03 00:00:00 2021-02-03 00:00:00 Outpatient STLMLC STLMLC [id number] [facility] 2020-11-25 00:00:00 2020-11-25 00:00:00 Outpatient STLMLC STLMLC [id number] [facility] 2020-11-25 00:00:00 2020-11-25 00:00:00 Outpatient STLMLC STLMLC [id number] [facility] 2020-11-24 07:10:00 2020-11-24 12:29:00 Emergency Hernesto Dodge [facility] [id number] [facility] 2020-11-24 06:43:00 2020-11-24 06:43:00 Emergency X [facility] ERT [id number] [facility] 2020-05-27 02:30:00 2020-05-27 02:30:00 Outpatient [facility] [id number] [facility] 2020-02-27 14:00:00 2020-02-27 14:00:[address] [facility] [id number] [facility] 2020-02-07 10:30:00 2020-02-07 10:30:[address] [facility] [id number] [facility] 2019-12-04 11:45:00 2019-12-04 11:45:[address] [facility] [id number] [facility] 2019-10-23 08:15:00 2019-10-23 08:15:[address] [facility] [id number] [facility] 2019-10-01 14:54:00 2019-10-01 14:54:[address] [facility] [id number] [facility] 2019-08-27 14:30:00 2019-08-27 14:30:[address] [facility] [id number] [facility] 2019-08-19 13:19:00 2019-08-19 13:19:[address] [facility] [id number] [facility] 2019-07-16 14:21:00 2019-07-16 14:21:[address] [facility] [id number] [facility] 2019-07-02 09:30:00 2019-07-02 09:30:[address] [facility] [id number] [facility] 2019-06-20 14:30:00 2019-06-20 14:30:[address] [facility] [id number] [facility] 2019-05-21 13:45:00 2019-05-21 13:45:[address] [facility] [id number] [facility] 2019-03-12 13:45:00 2019-03-12 13:45:[address] [facility] [id number] [facility] 2019-02-11 00:00:00 2019-02-11 00:00:00 Ghada Jackson MD: [address], [address], [place] [address] , Ph. [phone] [facility] [id number] [facility] 2019-02-08 11:00:00 2019-02-08 11:00:[address] [facility] [id number] [facility] 2018-12-26 14:45:00 2018-12-26 14:45:[address] [facility] [id number] [facility] 2018-11-09 09:00:00 2018-11-09 09:00:[address] [facility] [id number] [facility] Results Test Description Test Time Test Comments Results Result Co mments Source 2822 INSULIN RESISTANCE [id number] 00:00:00* Test Item Value Reference Range Interpretation Comme nts GLUCOSE (test code = 1558-6) 86 MG/DL See_Comment [Automated messa ge] The system which generated this result transmitted reference range: 70-99 MG/DL. The reference range was not used to interpret this result as normal/abnormal. 2822 INSULIN RESISTANCE [id number] 00:00:00* Test Item Value Reference Range Interpretation Comme nts GLUCOSE (test code = 1558-6) 101 MG/DL See_Comment H [Automated messa ge] The system which generated this result transmitted reference range: 70-99 MG/DL. The reference range was not used to interpret this result as normal/abnormal. CBC W/AUTO [id number] 00:00:00* Test Item Value Reference Range Interpretation Comme nts NUCLEATED RBCS (test code = 40673-4) 0.0 /100 WBC'S See_Comment [Automated messa ge] The system which generated this result transmitted reference range: 0.0 /100 WBC'S. The reference range was not used to interpret this result as normal/abnormal. ABSOLUTE EOSINOPHILS (test code = 25586-3) 0.21 K/UL See_Comment [Automated messa ge] The system which generated this result transmitted reference range: 0.00-0.50 K/UL. The reference range was not used to interpret this result as normal/abnormal. ABSOLUTE LYMPHOCYTES (test code = 69415-5) 2.29 K/UL See_Comment [Automated messa ge] The system which generated this result transmitted reference range: 1.00-4.00 K/UL. The reference range was not used to interpret this result as normal/abnormal. ABSOLUTE MONOCYTES (test code = 29308-4) 0.46 K/UL See_Comment [Automated messa ge] The system which generated this result transmitted reference range: 0.20-1.00 K/UL. The reference range was not used to interpret this result as normal/abnormal. ABSOLUTE NEUTROPHILS (test code = 79150-7) 2.15 K/UL See_Comment [Automated messa ge] The system which generated this result transmitted reference range: 1.50-7.50 K/UL. The reference range was not used to interpret this result as normal/abnormal. BASOPHILS (test code = 51129-7) 0.4 % EOSINOPHILS (test code = 33490-7) 4.1 % HEMATOCRIT (test code = 94917-1) 37.7 % See_Comment [Automated messa ge] The system which generated this result transmitted reference range: 34.0-45.0 %. The reference range was not used to interpret this result as normal/abnormal. HEMOGLOBIN (test code = 718-7) 12.6 G/DL See_Comment [Automated messa ge] The system which generated this result transmitted reference range: 11.5-15.5 G/DL. The reference range was not used to interpret this result as normal/abnormal. LYMPHOCYTES (test code = 02820-5) 44.5 % MCH (test code = 45638-6) 29.0 PG See_Comment [Automated messa ge] The system which generated this result transmitted reference range: 25.0-33.0 PG. The reference range was not used to interpret this result as normal/abnormal. MCHC (test code = 00277-4) 33.4 G/DL See_Comment [Automated messa ge] The system which generated this result transmitted reference range: 31.0-36.0 G/DL. The reference range was not used to interpret this result as normal/abnormal. MCV (test code = 27251-2) 86.9 fL See_Comment [Automated messa ge] The system which generated this result transmitted reference range: 80.0-99.0 fL. The reference range was not used to interpret this result as normal/abnormal. MONOCYTES (test code = 40211-0) 8.9 % NEUTROPHILS (test code = 12299-0) 41.7 % PLATELET COUNT (test code = 96111-4) 256 K/UL See_Comment [Automated messa ge] The system which generated this result transmitted reference range: 130-400 K/UL. The reference range was not used to interpret this result as normal/abnormal. RBC (test code = 53964-5) 4.34 M/UL See_Comment [Automated messa ge] The system which generated this result transmitted reference range: 3.80-5.40 M/UL. The reference range was not used to interpret this result as normal/abnormal. RDW (test code = 26485-4) 12.0 % See_Comment [Automated messa ge] The system which generated this result transmitted reference range: 11.5-15.0 %. The reference range was not used to interpret this result as normal/abnormal. WBC (test code = 04753-9) 5.2 K/UL See_Comment [Automated messa ge] The system which generated this result transmitted reference range: 3.5-11.0 K/UL. The reference range was not used to interpret this result as normal/abnormal. CBC W/AUTO [id number] 00:00:00* Test Item Value Reference Range Interpretation Comme nts NUCLEATED RBCS (test code = 83184-8) 0.0 /100 WBC'S See_Comment [Automated messa ge] The system which generated this result transmitted reference range: 0.0 /100 WBC'S. The reference range was not used to interpret this result as normal/abnormal. ABSOLUTE EOSINOPHILS (test code = 63642-8) 0.13 K/UL See_Comment [Automated messa ge] The system which generated this result transmitted reference range: 0.00-0.50 K/UL. The reference range was not used to interpret this result as normal/abnormal. ABSOLUTE LYMPHOCYTES (test code = 32390-5) 1.84 K/UL See_Comment [Automated messa ge] The system which generated this result transmitted reference range: 1.00-4.00 K/UL. The reference range was not used to interpret this result as normal/abnormal. ABSOLUTE MONOCYTES (test code = 67315-8) 0.36 K/UL See_Comment [Automated messa ge] The system which generated this result transmitted reference range: 0.2-3.8 K/UL. The reference range was not used to interpret this result as normal/abnormal. ABSOLUTE NEUTROPHILS (test code = 24201-6) 2.01 K/UL See_Comment [Automated messa ge] The system which generated this result transmitted reference range: 1.50-7.50 K/UL. The reference range was not used to interpret this result as normal/abnormal. BASOPHILS (test code = 12570-6) 0.7 % EOSINOPHILS (test code = 88089-9) 3.0 % HEMATOCRIT (test code = 66769-3) 40.6 % See_Comment [Automated messa ge] The system which generated this result transmitted reference range: 34.0-45.0 %. The reference range was not used to interpret this result as normal/abnormal. HEMOGLOBIN (test code = 718-7) 13.7 G/DL See_Comment [Automated messa ge] The system which generated this result transmitted reference range: 11.5-15.5 G/DL. The reference range was not used to interpret this result as normal/abnormal. LYMPHOCYTES (test code = 67304-1) 41.9 % MCH (test code = 60746-2) 29.6 PG See_Comment [Automated messa ge] The system which generated this result transmitted reference range: 25.0-33.0 PG. The reference range was not used to interpret this result as normal/abnormal. MCHC (test code = 21760-1) 33.7 G/DL See_Comment [Automated messa ge] The system which generated this result transmitted reference range: 31.0-36.0 G/DL. The reference range was not used to interpret this result as normal/abnormal. MCV (test code = 30139-0) 87.7 fL See_Comment [Automated messa ge] The system which generated this result transmitted reference range: 80.0-99.0 fL. The reference range was not used to interpret this result as normal/abnormal. MONOCYTES (test code = 42034-4) 8.2 % NEUTROPHILS (test code = 86350-1) 45.7 % PLATELET COUNT (test code = 73910-0) 270 K/UL See_Comment [Automated messa ge] The system which generated this result transmitted reference range: 130-400 K/UL. The reference range was not used to interpret this result as normal/abnormal. RBC (test code = 02132-3) 4.63 M/UL See_Comment [Automated messa ge] The system which generated this result transmitted reference range: 3.80-5.40 M/UL. The reference range was not used to interpret this result as normal/abnormal. RDW (test code = 11017-5) 11.7 % See_Comment [Automated messa ge] The system which generated this result transmitted reference range: 11.5-15.0 %. The reference range was not used to interpret this result as normal/abnormal. WBC (test code = 90767-9) 4.4 K/UL See_Comment [Automated messa ge] The system which generated this result transmitted reference range: 3.5-11.0 K/UL. The reference range was not used to interpret this result as normal/abnormal.
--- NOTE | 2024-10-16 10:45 | ER ---
Nurse's Notes [facility] Name: Renae Joseph Age: 34 yrs Sex: Female : 1990 Arrival Date: 10/16/2024 Time: 10:18 Bed DX1 Private MD: Diagnosis: Abrasion, left thigh;Dog bite Presentation: 10/16 10:35 Chief complaint: Patient states: dog bite to left upper posterior thigh. Coronavirus iw screen: At this time, the client does not indicate any symptoms associated with coronavirus-19. Ebola Screen: No symptoms or risks identified at this time. Initial Sepsis Screen: Does the patient meet any 2 criteria? No. Patient's initial sepsis screen is negative. Does the patient have a suspected source of infection? No. Patient's initial sepsis screen is negative. Risk Assessment: Do you want to hurt yourself or someone else? Patient reports no desire to harm self or others. Onset of symptoms was October 16, 2024. 10:35 Method Of Arrival: Ambulatory iw 10:35 Acuity: ЕКАТЕРИНА 4 iw Triage Assessment: 10:36 Bite description: by a dog, animal information: vaccination(s) is unknown. iw Historical: - Allergies: 10:36 HYDROCODONE; iw 10:36 Latex; iw - PMHx: 10:36 Anxiety; Depression; iw - Immunization history:: Adult Immunizations not up to date. - Infectious Disease History:: Denies. - Social history:: Smoking status: unknown. Screenin:39 [facility] ED Fall Risk Assessment (Adult) History of falling in the last 3 months, iw including since admission No falls in past 3 months (0 pts) Confusion or Disorientation No (0 pts) Intoxicated or Sedated No (0 pts) Impaired Gait No (0 pts) Mobility Assist Device Used No (0 pt) Altered Elimination No (0 pt) Score/Fall Risk Level 0 - 2 = Low Risk Oriented to surroundings, Maintained a safe environment. Abuse screen: Denies threats or abuse. Denies injuries from another. Nutritional screening: No deficits noted. Tuberculosis screening: No symptoms or risk factors identified. Assessment: 10:38 General: Appears in no apparent distress. Behavior is calm, cooperative. Pain: iw Complains of pain in left hamstring. Neuro: Level of Consciousness is awake, alert, obeys commands, Oriented to person, place, time, situation. Respiratory: Respiratory effort is even, unlabored. Derm: Skin is healthy with good turgor, Skin is pink, warm \T\ dry. Musculoskeletal: Range of motion: intact in all extremities. 10:46 Reassessment: notified [facility] [employer] , will have officer en route. iw Vital Signs: 10:35 BP 137 / 83; Pulse 89; Resp 18; Temp 98.1; Pulse Ox 98% ; iw ED Course: 10:22 Patient arrived in ED. al6 10:31 Hubert Roberts DO is Attending Physician. ms3 10:36 Triage completed. iw 10:36 Arm band placed on. iw 10:43 Junior Mcdonnell DO is Referral Physician. ms3 11:05 Patient has correct armband on for positive identification. Provided Education on: jl7 discharge. 11:05 No provider procedures requiring assistance completed. Patient did not have IV access jl7 during this emergency room visit. Administered Medications: 11:03 Drug: Boostrix Tdap IM 0.5 ml IM once; as a single dose Route: IM; Site: left deltoid; jl7 11:06 Follow up: Response: No adverse reaction jl7 Medication: 11:05 Vaccine Information Statement (VIS) provided today. Questions and/or concerns jl7 addressed. VIS edition date: February 12, 2021. Outcome: 10:44 Discharge ordered by . ms3 11:05 Discharged to home ambulatory, jl7 11:05 Condition: stable 11:05 Discharge instructions given to patient, Instructed on discharge instructions, follow up and referral plans. medication usage, Demonstrated understanding of instructions, follow-up care, medications, Prescriptions given X 1, 11:06 Patient left the ED. jl7 Signatures: Teri Macias, RN RN iw Chris Barclay RN RN jl7 Hubert Roberts DO DO ms3 Mayra Baptiste al6
--- NOTE | 2024-10-16 10:45 | EDPHYS ---
Physician Documentation [facility] Name: Renae Joseph Age: 34 yrs Sex: Female : 1990 Arrival Date: 10/16/2024 Time: 10:18 Bed DX1 Private MD: ED Physician Hubert Roberts HPI: 10/16 10:40 This 34 yrs old Female presents to ER via Ambulatory with complaints of Dog ms3 Bite - leg. 10:40 34-year-old female with past medical history of anxiety and depression presents to the [facility] emergency department for dog bite to left posterior thigh that occurred approximate 2 hours prior to arrival. Patient states she went into her mother's house without knocking and then came down the stairs and went into the garage and the dog jumped up biting her in the posterior left thigh. Patient denies pain at this time. Patient states dog is behaving normally. Patient states she has not received a tetanus shot in 10 years. Historical: - Allergies: 10:36 HYDROCODONE; iw 10:36 Latex; iw - PMHx: 10:36 Anxiety; Depression; iw - Immunization history:: Adult Immunizations not up to date. - Infectious Disease History:: Denies. - Social history:: Smoking status: unknown. ROS: 10:40 Constitutional: Negative for fever, and chills. Cardiovascular: Negative for chest ms3 pain, and palpitations. Respiratory: Negative for shortness of breath, cough, wheezing, and pleuritic chest pain, Abdomen/GI: Negative for abdominal pain, nausea, vomiting, diarrhea, and constipation, MS/Extremity: Negative for injury and deformity, 10:40 Skin: Positive for abrasion(s), of the Left posterior thigh, Exam: 10:40 Constitutional: This is a well developed, well nourished patient who is awake, alert, ms3 and in no acute distress. Cardiovascular: Regular rate and rhythm with a normal S1 and S2. No gallops, murmurs, or rubs. Normal PMI, no JVD. No pulse deficits. Respiratory: Lungs have equal breath sounds bilaterally, clear to auscultation and percussion. No rales, rhonchi or wheezes noted. No increased work of breathing, no retractions or nasal flaring. Abdomen/GI: Soft, non-tender, with normal bowel sounds. No distension or tympany. No guarding or rebound. No evidence of tenderness throughout. MS/ Extremity: Pulses equal, no cyanosis. Neurovascular intact. Full, normal range of motion. 10:40 Skin: injury, abrasion(s), small abrasion noted, of the Left posterior thigh, Vital Signs: 10:35 BP 137 / 83; Pulse 89; Resp 18; Temp 98.1; Pulse Ox 98% ; iw MDM: 10:34 Medical Screening Exam initiated ms3 10:40 Differential diagnosis: superficial laceration, Abrasion versus dog bite versus tetanus ms3 vaccination. Data reviewed: vital signs, nurses notes, and as a result, I will discharge patient. I considered the following discharge prescriptions or medication management in the emergency department Medications were administered in the Emergency Department. See MAR. Counseling: I had a detailed discussion with the patient and/or guardian regarding the historical points, exam findings, and any diagnostic results supporting the discharge/admit diagnosis, the need for outpatient follow up, to return to the emergency department if symptoms worsen or persist or if there are any questions or concerns that arise at home. Special discussion: I discussed with the patient/guardian in detail that at this point there is no indication for admission to the hospital. It is understood, however, that if the symptoms persist or worsen the patient needs to return immediately for re-evaluation. ED course: Patient states the dog is her stepsister's dog and is at home and behaving normally. Dog can be observed for 10 days. Nursing to notify animal control. Patient given prescription for Augmentin and tetanus vaccine updated. Patient to follow-up with primary care physician in 2 to 3 days. All questions were answered. Return precautions discussed include worsening symptoms, or any other concerns.. Administered Medications: 11:03 Drug: Boostrix Tdap IM 0.5 ml IM once; as a single dose Route: IM; Site: left deltoid; jl7 11:06 Follow up: Response: No adverse reaction jl7 Disposition Summary: 10/16/24 10:44 Discharge Ordered Notes: Location: Home ms3 Condition: Stable ms3 Diagnosis - Abrasion, left thigh ms3 - Dog bite ms3 Followup: ms3 - With: Junior Mcdonnell, DO - When: 2 - 3 days - Reason: Recheck today's complaints Discharge Instructions: - Discharge Summary Sheet ms3 - Animal Bite, Adult ms3 Forms: - Medication Reconciliation Form ms3 - Antibiotic Education ms3 - Prescription Opioid Use ms3 - Patient Portal Instructions ms3 - Leadership Thank You Letter ms3 Prescriptions: - Augmentin 875-125 mg Oral tablet - take 1 tablet ORAL route every 12 hours for 5 days; 10 tablet; Refills: 0, ms3 Product Selection Permitted Signatures: Teri Macias RN RN iw Chris Barclay RN RN jl7 Hubert Roberts DO DO ms3
[2024-10-16] MEDS ORDERED: TDAP (DIPHTH,PERTUSS(ACELL),TET VAC) 0.5 ML VIAL IMVAC ONE (10:57)
[2024-10-16 11:32] VITALS: BP 137/83; TEMP 98.1; O2SAT 98
== END 2024-10-16 11:06 | disposition home or self-care (01) ==
LOC: ER 10:18
DX: S70.312A Abrasion, left thigh, initial encounter (principal); W54.0XXA Bitten by dog, initial encounter
CPT/HCPCS: 90715